=== PATIENT | male | born 2005 | race Two or more races ===

== ENCOUNTER 2025-01-28 01:34 | Emergency (ER) | payer OTHER, SELFPAY ==
[2025-01-28 01:35] VITALS: BP 135/98; PULSE 110; RESP 18; TEMP 36.8; O2SAT 98; BMI 23.0
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
[2025-01-28] MEDS: NAPROXEN 250 MG TABLET 500 MG PO (02:41)
[2025-01-28] MEDS: AMOXICILLIN/POT CLAV 875 TABLET 1 TAB PO (02:41)
[2025-01-28] MEDS: DIPHTH,PERTUSS(ACELL),TET VAC 0.5 ML SYR- ADULT IMi (02:42)
== END 2025-01-28 02:47 | disposition home or self-care (01) ==
PROVIDERS: Emergency Provider Emergency Medicine; PCP Student in an Organized Health Care Education/Training Program
DX: S51.812A Laceration without foreign body of left forearm, initial encounter (principal); W54.0XXA Bitten by dog, initial encounter
CPT/HCPCS: 90471; 90715; 99282; A9270